=== PATIENT | female | born 1975 | race African-American/Black ===

== ENCOUNTER 2017-12-09 03:32 | Emergency (ER) | payer MEDICAID ==
[~2017-12-09] VITALS: Ht 167.6 cm; Wt 77.0 kg
[2017-12-09 06:20] VITALS: BP 104/53
[2017-12-09] MEDS ORDERED: ACETAMINOPHEN 325MG TABLET PO ONE (06:45)
== END 2017-12-09 09:11 | disposition home or self-care (01) ==
LOC: ER 03:34
DX: M54.6 Pain in thoracic spine (principal); F10.129 Alcohol abuse with intoxication, unspecified; R05 Cough; Y90.9 Presence of alcohol in blood, level not specified
CPT/HCPCS: 71111; 99284